=== PATIENT | female | born 1975 | race Caucasian/White ===

== ENCOUNTER → 2019-05-14 14:10 | Outpatient (CLI) | payer BC, SELFPAY ==
[2019-05-14 14:30] LABS: Basophils # 0.1 K/mm3 (0-0.2); Basophils % 0.7 % (0.1-2.0); Eosinophils # 0.1 K/mm3 (0.0-0.4); Eosinophils % 1.4 % (0.1-12.0); Hematocrit 35.8 % (37.0-47.0); Hemoglobin 11.2 g/dL (12.2-16.2); Lymphocytes % 26.3 % (10-50); Mean Corpuscular HGB Conc 31.3 g/dL (31.8-35.4); Mean Corpuscular Hemoglobin 28.4 pg (27.0-31.2); Mean Corpuscular Volume 90.6 fl (81-99); Mean Platelet Volume 8.4 fl (7.4-10.4); Monocytes # 0.5 K/mm3 (0.1-1.0); Neutrophils # 4.8 K/mm3 (1.8-7.8); Neutrophils % 64.7 % (37.0-80.0); Platelet Count 322 K/mm3 (142-424); Red Blood Count 3.95 M/mm3 (4.20-5.40); Red Cell Distribution Width 14.1 % (11.5-17.5); White Blood Count 7.4 K/mm3 (4.8-10.8)
[2019-05-14 15:10] LABS: Alanine Aminotransferase 31 U/L (12-78); Albumin Level 4.2 gm/dL (3.4-5.0); Alkaline Phosphatase 71 U/L (46-116); Anion Gap 14.1 mEq/L (5-15); Aspartate Amino Transferase 28 U/L (15-37); Bilirubin,Total 0.2 mg/dL (0.2-1.0); Blood Urea Nitrogen 14 mg/dL (7-18); Calcium 9.2 mg/dL (8.5-10.1); Carbon Dioxide 24 mmol/L (21.0-32.0); Chloride 102 mmol/L (98-107); Chol/HDL Ratio 2.2 (1-3.5); Cholesterol 178 mg/dL (140-200); Creatinine,Serum 1.01 mg/dL (0.55-1.02); Estimated Glomerular Filt Rate 59 ml/min (>60); GFR (African American) 71 ML/MIN (>60); Globulin 4.2 gm/dl (1.3-3.2); Glucose 80 mg/dL (74-106); HDL Cholesterol 81 mg/dL (29-89); LDL Cholesterol 89 mg/dL (0-130); Potassium 4.1 mmoL/L (3.5-5.1); Sodium 136 mmol/L (136-145); Thyroid Stimulating Hormone 4.99 uIU/ml (0.358-3.740); Total Protein,Serum 8.4 gm/dL (6.4-8.2); Triglycerides 39 mg/dL (30-200); VLDL Cholesterol 8 mg/dL (0-40)
[2019-05-16 07:11] LABS: Hep A Ab, IgM Negative (Negative); Hepatitis B Core Antibody IgM Negative (Negative); Hepatitis B Surface Antigen Negative (Negative)
[2019-05-16 09:16] LABS: HIV Screen 4th Generation wRfx Non Reactive (Non Reactive); Hepatitis C Antibody >11.0 s/co ratio (0.0-0.9)
[2019-05-16 09:17] LABS: Vitamin D 25 Hydroxy 18.2 ng/mL (30.0-100.0)
== END ==
PROVIDERS: Visit Provider Nurse Practitioner Family
DX: F32.9 Major depressive disorder, single episode, unspecified (principal); F41.9 Anxiety disorder, unspecified; I10 Essential (primary) hypertension; F19.11 Other psychoactive substance abuse, in remission; E55.9 Vitamin D deficiency, unspecified; Z79.899 Other long term (current) drug therapy
CPT/HCPCS: 80053; 80061; 80074; 82652; 84436; 84443; 85025; 86703; G0432

== ENCOUNTER → 2019-05-29 13:27 | Outpatient (CLI) | payer BC, SELFPAY | PROVIDERS: Visit Provider Nurse Practitioner Family | DX: Z87.898 Personal history of other specified conditions (principal); R79.9 Abnormal finding of blood chemistry, unspecified | CPT/HCPCS: 87522 ==

== ENCOUNTER → 2019-06-06 07:40 | Outpatient (CLI) | payer BC, SELFPAY ==
--- NOTE | 2019-06-06 07:42 | CA_ITS ---
APPROVED REPORT EXAM: Comprehensive 2D, Doppler, and color-flow Echocardiogram Inpatient Coder: Maih Nielson CRT Ht: 5 ft 7 in Wt: 163lbs BSA: 1.85 BP: 130/72 mmHg Indications: HTN, murmur, former drug use. 2D Dimensions LVOT 2.06 cm (M/F) 1.5-2.5 M-Mode Dimensions RVDd 1.98 cm (0.9-2.6) LVDd 5.71 cm (3.5-5.7) LVDs 3.32 cm (3.5-5.7) IVSd 1.08 cm (0.6-1.1) PWd 0.70 cm (0.6-1.1) EF (Teich) 72.10% FS 41.90% EDV (Teich) 160.70 mL ESV (Teich) 44.80 mL LV Diastology E/A Ratio 0.82 Mitral Valve MV A Velocity 88.00 (40-130 cm/s) Left Ventricle Left atrium is mildly enlarged, left ventricle is normal size, mild concentric left ventricular hypertrophy, visually estimated ejection fraction 55% with no regional wall motion abnormality. Grade 1 diastolic dysfunction seen without tissue Doppler evidence of raise left atrial pressure. Right Ventricle Right atrium and right ventricular normal size and contractility. Aortic Valve Aortic valve is minimally thickened and fibrosed. There is no aortic stenosis aortic insufficiency. Mitral Valve Mitral valve is grossly normal, there is mild mitral regurgitation. Tricuspid Valve Tricuspid valve is grossly normal, there is mild tricuspid regurgitation. Pulmonic Valve Pulmonic valve is poorly visualized. Great Vessels Aortic root is normal size. Pericardium No significant pericardial effusion noted. Conclusion 1. Mildly in the left atrium, normal left ventricular size, mild concentric left ventricular hypertrophy, visually estimated ejection fraction 55% with no regional wall motion abnormality, grade 1 diastolic dysfunction seen without tissue Doppler evidence of raise left atrial pressure. 2. Mild mitral and tricuspid regurgitation. 3. No significant pericardial effusion noted. Electronically signed by : Jose Hinds, 06/06/2019 13:37:13
--- NOTE | 2019-06-06 07:42 | CA_ITS ---
APPROVED REPORT Worship Leader: Erin Mchugh RVT Study Quality: Good Indications: htn Risk Factors Hypertension Renal Artery Doppler Origin (R) 179.9/ cm/sec Proximal (R) 152.6/ cm/sec Mid (R) 103.2/ cm/sec Distal (R) 77.6/ cm/sec Renal Aorta Ratio (R) 1.46 Segmental A. (R) 61.3/21.5 cm/sec RI: 0.64 Segmental A. Sup (R) 61.3/21.5 cm/sec Segmental A. Mid (R) 54.1/21.5 cm/sec Segmental A. Inf (R) 40.9/7.2 cm/sec Origin (L) 126.8/ cm/sec Proximal (L) 97.0/ cm/sec Mid (L) 157.3/ cm/sec Distal (L) 94.6/ cm/sec Renal Aorta Ratio (L) 1.27 Segmental A. (L) 73.3/21.3 cm/sec RI: 0.70 Segmental A. Sup (L) 65.3/34.7 cm/sec Segmental A. Mid (L) 52.0/14.7 cm/sec Segmental A. Inf (L) 73.3/21.3 cm/sec Renal Measurements Kidney Size (R) 9.0x5.3 cm Cortical Thickness (R) 1.6 cm Kidney Size (L) 9.5x6.8 cm Cortical Thickness (L) 1.6 cm Conclusion Study suggests less than 60% stenosis of the right renal artery. Study suggests no evidence of stenosis left renal artery. Cholelithiasis. Electronically signed by : Jose Luis Yo MD 06/06/2019 15:43:26
--- NOTE | 2019-06-06 08:52 | MM_ITS ---
PROCEDURE: MM DIG SCREENING MAMM BI W/CAD CLINICAL INDICATION: screening for breast cancer There is a history of breast cancer patient's paternal aunt diagnosed before menopause. COMPARISON: None, this is baseline screening exam TECHNIQUE: Standard CC and MLO images were obtained. R2 CAD reviewed. FINDINGS: Mild to moderate fibroglandular densities are seen in the upper outer quadrants of both breasts and the findings of bilateral and symmetrical. There is no suspicious lesion and no suspicious microcalcifications. IMPRESSION: Fibrofatty parenchyma with no suspicious lesions seen BI-RAD Category: 1 Negative FOLLOW-UP: 1YR 1 Year Follow-up (A letter has been sent to the patient regarding results of the study.) Dictated by: Dr. Ender Puentes MD 06/10/2019 11:[address] Ender Puentes MD in [place] 06/10/2019 11:14
== END ==
PROVIDERS: PCP Emergency Medicine; Visit Provider Nurse Practitioner Family
DX: Z12.31 Encounter for screening mammogram for malignant neoplasm of breast (principal); R01.1 Cardiac murmur, unspecified; I10 Essential (primary) hypertension; F19.11 Other psychoactive substance abuse, in remission
CPT/HCPCS: 77067; 93306; 93976

== ENCOUNTER → 2019-06-06 09:45 | Outpatient (CLI) | payer BC, SELFPAY ==
[2019-06-12 18:15] LABS: HCV Genotype Charge YES; Hepatitis C Genotype 1a (.)
== END ==
PROVIDERS: Visit Provider Nurse Practitioner Family
DX: R76.8 Other specified abnormal immunological findings in serum (principal)
CPT/HCPCS: 36415; 87522; 87902

== ENCOUNTER → 2019-06-27 09:25 | Outpatient (CLI) | payer BC, SELFPAY ==
--- NOTE | 2019-06-27 09:25 | US_ITS ---
PROCEDURE: US GALLBLADDER CLINICAL INDICATION: gallstones Cholelithiasis COMPARISON: No exams were available for comparison FINDINGS: Pancreas: Unremarkable/Not well seen Liver: Unremarkable. There is appropriate direction of blood flow within a non dilated portal vein. Right kidney: Unremarkable appearing. No hydronephrosis. Gallbladder: Gallbladder is distended at 12 by 5.4 cm. There is a gallstone present. Common bile duct is within normal limits at 4 mm. No gallbladder wall thickening pericholecystic fluid or biliary dilatation. IMPRESSION: Distended gallbladder with cholelithiasis Dictated by: Jose Luis Yo MD 06/27/2019 15:37 Electronically signed by Jose Luis Yo MD in [facility] 06/27/2019 15:37
== END ==
PROVIDERS: PCP Emergency Medicine; Visit Provider Surgery
DX: K82.9 Disease of gallbladder, unspecified (principal)
CPT/HCPCS: 76705

== ENCOUNTER → 2019-06-30 11:31 | Outpatient (CLI) | payer BC, SELFPAY ==
[2019-06-30 12:06] LABS: Basophils % 0.3 % (0.1-2.0); Eosinophils # 0.1 K/mm3 (0.0-0.4); Eosinophils % 1.2 % (0.1-12.0); Hemoglobin 11.1 g/dL (12.2-16.2); Lymphocytes # 1.9 K/mm3 (0.7-4.5); Lymphocytes % 25.3 % (10-50); Mean Corpuscular HGB Conc 30.8 g/dL (31.8-35.4); Mean Corpuscular Hemoglobin 26.6 pg (27.0-31.2); Mean Corpuscular Volume 86.3 fl (81-99); Mean Platelet Volume 8.8 fl (7.4-10.4); Monocytes # 0.7 K/mm3 (0.1-1.0); Monocytes % 9.2 % (1.7-9.3); Neutrophils # 4.8 K/mm3 (1.8-7.8); Neutrophils % 64.1 % (37.0-80.0); Platelet Count 233 K/mm3 (142-424); Red Blood Count 4.17 M/mm3 (4.20-5.40); Red Cell Distribution Width 14.1 % (11.5-17.5); White Blood Count 7.4 K/mm3 (4.8-10.8)
[2019-06-30 12:10] LABS: INR 1.03 (0.9-1.1); Prothrombin Time 10.7 seconds (9.4-11.8)
[2019-06-30 13:12] LABS: Alanine Aminotransferase 46 U/L (12-78); Albumin Level 3.9 gm/dL (3.4-5.0); Albumin/Globulin Ratio 1.1 (1.1-1.8); Alkaline Phosphatase 67 U/L (46-116); Anion Gap 15.6 mEq/L (5-15); Aspartate Amino Transferase 44 U/L (15-37); Bilirubin,Total 0.2 mg/dL (0.2-1.0); Blood Urea Nitrogen 14 mg/dL (7-18); Calcium 8.5 mg/dL (8.5-10.1); Carbon Dioxide 23 mmol/L (21.0-32.0); Chloride 105 mmol/L (98-107); Creatinine,Serum 0.95 mg/dL (0.55-1.02); Estimated Glomerular Filt Rate 63 ml/min (>60); GFR (African American) 77 ML/MIN (>60); Globulin 3.5 gm/dl (1.3-3.2); Glucose 76 mg/dL (74-106); Potassium 4.6 mmoL/L (3.5-5.1); Sodium 139 mmol/L (136-145); Total Protein,Serum 7.4 gm/dL (6.4-8.2)
== END ==
PROVIDERS: Visit Provider Surgery
DX: Z01.818 Encounter for other preprocedural examination (principal); R10.9 Unspecified abdominal pain; K80.10 Calculus of gallbladder with chronic cholecystitis without obstruction
CPT/HCPCS: 36415; 80053; 85025; 85610

== ENCOUNTER → 2021-01-05 10:38 | Outpatient (CLI) | payer BC, SELFPAY ==
--- NOTE | 2021-01-05 10:39 | MM_ITS ---
PROCEDURE: MM DIG SCREENING MAMM BI W/CAD Digital Breast Tomosynthesis Included CLINICAL INDICATION: screening COMPARISON: MG MM DIG SCREENING MAMM BI W/CAD from 06/06/2019 TECHNIQUE: Standard CC and MLO images and 3D Tomosynthesis was obtained. R2 CAD reviewed. FINDINGS: There has been interval weight loss since the last mammogram. Average fibroglandular tissue. No malignant appearing mass or malignant-appearing microcalcification. There is some asymmetry in the retroareolar region on the left on the CC view. This however demonstrates interspersed fat on the tomographic images and is not felt to be significantly changed IMPRESSION: Benign findings. BI-RAD Category: 2 Benign Finding FOLLOW-UP: 1 YR 1 Year Follow-up (A letter has been sent to the patient regarding results of the study.) Dictated by: Jose Luis Yo MD 01/06/2021 09:13 Jose Luis oY MD in [facility] 01/06/2021 09:13
== END ==
PROVIDERS: PCP Emergency Medicine; Visit Provider Emergency Medicine
DX: Z12.31 Encounter for screening mammogram for malignant neoplasm of breast (principal)
CPT/HCPCS: 77063; 77067

== ENCOUNTER → 2021-11-01 15:09 | Outpatient (CLI) | payer BC, SELFPAY ==
--- NOTE | 2021-11-01 15:09 | MR_ITS ---
PROCEDURE INFORMATION: Exam: MR Cervical Spine Without Contrast Exam date and time: 11/01/2021 3:55 PM Age: 46 years old Clinical indication: Neck pain; Additional info: Neck pain. Right sided shulder pain and neck pain x 1 year but gotten worse. No injury / trauma. Headaches TECHNIQUE: Imaging protocol: Multiplanar magnetic resonance images of the cervical spine without contrast. COMPARISON: No relevant prior studies available. FINDINGS: Vertebrae: No acute fracture is identified. There is straightening of the normal cervical lordosis. There is a 7 mm high T2 signal lesion in the T1 vertebral body, likely representing a lipid poor hemangioma. Degenerative bone marrow edema and sclerosis is noted along the C4-C5 endplates. Spinal cord: The cervical cord is of normal signal intensity and size. C2-C3: No significant disc disease. No significant spinal stenosis. C3-C4: There is mild uncinate spurring and facet arthropathy. This is causing mild right foraminal stenosis. There is no spinal canal or left foraminal stenosis. C4-C5: There is disc dehydration, severe disc space narrowing, a broad-based posterior disc osteophyte complex, marked uncinate spurring, and minimal facet arthropathy. This is causing mild spinal canal stenosis and severe bilateral foraminal stenosis. C5-C6: There is a broad-based posterior disc osteophyte complex, moderate uncinate spurring, and mild thickening of the ligamentum flavum. This is causing minimal spinal canal stenosis, moderate left foraminal stenosis, and moderate/severe right foraminal stenosis. C6-C7: There is shallow broad-based posterior disc bulging, mild uncinate spurring, and mild thickening of the ligamentum flavum. This is causing minimal spinal canal stenosis, mild right foraminal stenosis, and minimal left foraminal stenosis. C7-T1: No significant disc disease. No significant spinal stenosis. Soft tissues: The prevertebral soft tissues are within normal limits. Vertebral arteries: Expected flow voids in the vertebral arteries. IMPRESSION: Degenerative changes of the cervical spine as discussed above. Severe bilateral foraminal stenosis is present at C4-C5.
== END ==
PROVIDERS: PCP Emergency Medicine; Visit Provider Emergency Medicine
DX: M54.2 Cervicalgia (principal)
CPT/HCPCS: 72141; 76376

== ENCOUNTER → 2021-11-28 10:56 | Outpatient (POV) | payer BC, SELFPAY ==
[2021-11-28 11:43] VITALS: BP 131/81; PULSE 80; RESP 20; TEMP 36.7; O2SAT 98; BMI 18.3
--- NOTE | 2021-11-28 14:42 | HMH.PMCON ---
Assessment and Plan (1) Degenerative disc disease, cervical Status: Acute Category: Medical Code(s): M50.30 - Other cervical disc degeneration, unspecified cervical region (2) Cervical radiculopathy Status: Acute Category: Medical Code(s): M54.12 - Radiculopathy, cervical region - Assessment and plan all Dx Assessment and Plan for all problems:: Imaging: FINDINGS: Vertebrae: No acute fracture is identified. There is straightening of the normal cervical lordosis. There is a 7 mm high T2 signal lesion in the T1 vertebral body, likely representing a lipid poor hemangioma. Degenerative bone marrow edema and sclerosis is noted along the C4-C5 endplates. Spinal cord: The cervical cord is of normal signal intensity and size. C2-C3: No significant disc disease. No significant spinal stenosis. C3-C4: There is mild uncinate spurring and facet arthropathy. This is causing mild right foraminal stenosis. There is no spinal canal or left foraminal stenosis. C4-C5: There is disc dehydration, severe disc space narrowing, a broad-based posterior disc osteophyte complex, marked uncinate spurring, and minimal facet arthropathy. This is causing mild spinal canal stenosis and severe bilateral foraminal stenosis. C5-C6: There is a broad-based posterior disc osteophyte complex, moderate uncinate spurring, and mild thickening of the ligamentum flavum. This is causing minimal spinal canal stenosis, moderate left foraminal stenosis, and moderate/severe right foraminal stenosis. C6-C7: There is shallow broad-based posterior disc bulging, mild uncinate spurring, and mild thickening of the ligamentum flavum. This is causing minimal spinal canal stenosis, mild right foraminal stenosis, and minimal left foraminal stenosis. C7-T1: No significant disc disease. No significant spinal stenosis. Soft tissues: The prevertebral soft tissues are within normal limits. Vertebral arteries: Expected flow voids in the vertebral arteries. IMPRESSION: Degenerative changes of the cervical spine as discussed above. Severe bilateral foraminal stenosis is present at C4-C5. Plan: Patient presents today as a new patient with worsening neck pain that radiates to the right shoulder. This has been going on for about 6 months now. Denies any history of traumas or falls. Cervical MRI is posted above. We will schedule this patient for a cervical epidural steroid injection at C5-C6. Risk and benefits of this procedure been discussed with the patient. Patient would like to proceed with this procedure. Patient is not on any blood thinners. Patient is currently on Suboxone therapy. According to the patient, she has been cleaned for 8 years now. We will continue to manage this patient with injective therapy if needed. Patient is worried about the lumps and bruising that happens whenever she gets his radiating pain from her neck to her right shoulder. I discussed with her that if the cervical epidural steroid injection does not provide any significant relief, this pain on her neck and right shoulder might be vascular in nature. Neuropathic pain typically do not present with any lumps or bruising. Patient has been instructed to contact the clinic with any concerns before the next appointment. Dr. Chris has reviewed this note and agrees with this plan of care. This note was dictated using voice recognition software and make contain errors or omissions. HPI - Data of Consult Patient: new to practice Consult date: 11/28/21 Requesting Physician: DIEGO Thomas - Consult Narrative Reason for consult: neck pain History of present illness: Ms. Chirinos is a 46 year old female who presents today as a new patient. Patient is referred by Dr. Kat. Thank you for the referral. Patient with a hx of substance abuse and currently on suboxone therapy x3 years presents w
== END ==
PROVIDERS: Visit Provider Student in an Organized Health Care Education/Training Program
DX: M50.10 Cervical disc disorder with radiculopathy, unspecified cervical region (principal); F19.11 Other psychoactive substance abuse, in remission
CPT/HCPCS: 99202; G0463

== ENCOUNTER 2021-12-06 13:38 | Day surgery (SDC) | payer BC, SELFPAY ==
[2021-12-06 13:52] VITALS: BP 111/58; BP 138/99; PULSE 82; RESP 18; RESP 20; TEMP 36.4; O2SAT 93; BMI 17.4
--- NOTE | 2021-12-06 14:00 | HMH.PMPROC ---
- Procedure Date: 12/06/21 Time: 14:01 Anesthesiologist:: Jonathan Cazares CRNA Complications:: None Pre-procedure Diagnosis:: Degenerative disc disease cervical spine multilevels. Cervical radiculopathy symptoms. Post-procedure Diagnosis:: Same Indications for Procedure:: Patient is a pleasant 46-year-old female that comes our injection clinic today for cervical epidural steroid injection. Patient has pathology at most levels in the cervical spine. Bone spur. Degenerative disc. Spinal stenosis. Foraminal stenosis. Patient has not tried cervical epidural steroid injection in the past. She is happy to get it done today to have some relief. Patient continues on Suboxone 8 mg. Patient states she has been clean for 8 years. However, continues on Suboxone. This comes from her PCP. Procedure Details:: Procedure:Cervical epidural steroid injection Informed consent was obtained and the risks and benefits of the procedure were explained to the patient. The patient was taken to the procedure room and noninvasive monitors placed, including noninvasive blood pressure cuff and pulse oximeter. The neck was prepped using Betadine as a cleansing solution. The C6-C7 interspace was palpated. The skin and subcutaneous tissues were anesthetized using lidocaine 1.5% and a 25-gauge needle. After this an 18-gauge Touhy epidural needle was placed into the C6-C7 interspace and advanced using loss of resistance to air until the epidural space was encountered. After confirmation of needle placement in the epidural space, a solution containing lidocaine 1.5%, 4 mL and Depo-Medrol 80 mg was incrementally injected into the cervical epidural space.~ The patient tolerated the procedure well with no complications. The patient was observed in the Pain Clinic and then discharged home neurologically intact. Plan and Disposition:: Patient was discharged without incident.
[2021-12-06 14:10] VITALS: BP 102/67; PULSE 78; RESP 18; O2SAT 96
== END 2021-12-06 14:11 | disposition home or self-care (01) ==
LOC: SC.PAINP 13:39
PROVIDERS: PCP Emergency Medicine; Visit Provider Nurse Anesthetist, Certified Registered
DX: M50.123 Cervical disc disorder at C6-C7 level with radiculopathy (principal); M48.02 Spinal stenosis, cervical region; M46.02 Spinal enthesopathy, cervical region; K21.9 Gastro-esophageal reflux disease without esophagitis; K75.9 Inflammatory liver disease, unspecified; F41.9 Anxiety disorder, unspecified; F32.A Depression, unspecified; Z72.0 Tobacco use
CPT/HCPCS: 62321; 76000; J1040

== ENCOUNTER → 2021-12-22 13:01 | Outpatient (POV) | payer BC, SELFPAY ==
[2021-12-22 14:51] VITALS: BP 125/89; PULSE 76; RESP 17; TEMP 36.7; O2SAT 97; BMI 17.2
--- NOTE | 2021-12-22 21:11 | HMH.PAINSOAP ---
[facility] Pain Management SOAP Note Subjective:: Patient is a pleasant 38-year-old female who presents today for follow-up after a cervical epidural steroid injection on December 06, 2021. Patient is currently being treated for degenerative disc disease of the cervical spine with cervical radiculopathy symptoms. After the injection, patient had significant relief of 70 to 80% that lasted for about 5 days. Patient states that she was able to increase her activities during those 5 days. Before the injection, she was having radicular pains from her neck to her right arm. She states that these reticulating pain got better after the injection. Today, patient states that her pain is almost back to baseline. She has less neck pain but she continues to have pain around her right shoulder. Rates her pain today as 8 out of 10. Review of Systems: General: No recent weight changes, no fever, no sleep disturbances Respiratory: No cough, no shortness of air, no recurring pulmonary infections Cardiovascular/peripheral vascular: No chest pain, no palpitations, no edema, no shortness of breath Gastrointestinal: No new onset incontinence, normal bowel movements reported Genitourinary: No new onset incontinence Musculoskeletal: Neck pain, shoulder pain Psychiatric: [Normal mood/affect] Neurological: [Denies weakness in extremities], [denies balance issues] Objective:: Physical Exam: General: Alert and oriented x3, no acute distress, pleasant and cooperative Lungs: Respirations even and unlabored, symmetrical chest expansion Eyes: PERRL Musculoskeletal: Flexion and extension of cervical [spine] somewhat guarded secondary to pain, [antalgic gait noted]; cervical paraspinous and upper trapezius are tender to palpation Neurological: Speech clear, no gross sensory deficit Assessment:: Degenerative disc disease of the cervical spine with cervical radiculopathy symptoms, myofascial pain Plan:: Patient is TTP around the cervical and baudilio upper trap. She did have good relief after the DOT. We will schedule this patient for a TPI at Cervical Paraspinous and Baudilio Upper Trap. Patient has been instructed to contact the clinic with any concerns before the next appointment. Dr. Chris has reviewed this note and agrees with this plan of care. This note was dictated using voice recognition software and make contain errors or omissions. [facility] History Medical History: Reports:: Anxiety, Depression, Gastroesophageal Reflux Disease(GERD), Hepatitis Denies:: Cancer, Diabetes Mellitus Type 1, Diabetes Mellitus Type 2, Internal Pacemaker, MRSA, Seizures *Have you ever received a pneumonia vaccine?: No *Have you received a flu vaccine this season?: Yes Other Medical History: Reports: Arthritis, Other. Denies: Blood Transfusion Reaction Laterality Cases: Right: Arthroscopy Knee Other Surgeries: Yes: Cholecystectomy, (x2), Tubal Ligation, Other. No: Pacemaker Amputation: No Fractures: Yes (left ankle) - *Social History Smoking Status: Current every day smoker Tobacco Type: cigarettes # Packs/Day (cigarettes): 1 Alcohol Intake: never Substance Use Type: former substance user, crack/cocaine, heroin *Occupational Status:: other Housing: house Household Members: significant other *Travel in the last 8 weeks: None - Psychiatric History Pschychiatric History:: Reports:: Anxiety, Depression Family Hx:: Cancer, Diabetes, Hyperlipidemia, Hypertension, Alcoholism
== END ==
PROVIDERS: Visit Provider Student in an Organized Health Care Education/Training Program
DX: M50.10 Cervical disc disorder with radiculopathy, unspecified cervical region (principal); M79.18 Myalgia, other site
CPT/HCPCS: 99212; G0463

== ENCOUNTER 2022-01-13 08:09 | Day surgery (SDC) | payer BC, SELFPAY ==
[2022-01-13 08:24] VITALS: BP 116/73; PULSE 77; RESP 18; TEMP 36.3; O2SAT 97; BMI 18.0
[2022-01-13 08:37] VITALS: BP 139/82; PULSE 77; RESP 20
--- NOTE | 2022-01-13 08:43 | HMH.PMPROC ---
- Procedure Date: 01/13/22 Time: 08:43 Anesthesiologist:: Jonathan Cazares CRNA Complications:: None Pre-procedure Diagnosis:: MYoFascial pain bilateral trapezius muscle Post-procedure Diagnosis:: M Indications for Procedure:: Patient is a very pleasant 38-year-old female that comes our clinic today for bilateral trapezius trigger point injections. Patient has had pain up in the trapezius area for several months now she rates the pain 9/10. We will inject bilateral trapezius muscles today. Procedure Details:: Details of the procedure were explained to the patient. The patient was taken to the procedure room placed in the sitting position. The area over the bilateral trapezius muscle was cleaned using chlorhexidine as a cleansing solution. Markers were placed over 3 different positions on the right trapezius muscle. Medial to lateral. These were identified from the patient as the spots that are really painful. I used a 1-1/2 inch 25-gauge needle and at each marker placed 3 cc of 0.25% Marcaine +1% lidocaine and 40 mg solution. We repeated the same procedure on the left trapezius muscle. Patient tolerated procedure without difficulty. There are no complications. Plan and Disposition:: Patient will return to see us in clinic for follow-up visit.
[2022-01-13 08:51] VITALS: BP 118/72; PULSE 75; RESP 20; O2SAT 97
== END 2022-01-13 08:52 | disposition home or self-care (01) ==
LOC: SC.PAINP 08:09
PROVIDERS: PCP Emergency Medicine; Visit Provider Nurse Anesthetist, Certified Registered
DX: M79.18 Myalgia, other site (principal); M19.90 Unspecified osteoarthritis, unspecified site; Z72.0 Tobacco use
CPT/HCPCS: 20552; 77002; J1040

== ENCOUNTER → 2022-02-20 13:01 | Outpatient (POV) | payer BC, SELFPAY ==
[2022-02-20 13:20] VITALS: BP 125/80; PULSE 72; RESP 20; TEMP 36.7; O2SAT 97; BMI 17.2
--- NOTE | 2022-02-20 14:30 | A.OFFVIS_ITS ---
[facility] Pain Management SOAP Note Subjective:: Patient is a 46-year-old female who presents today for follow-up. We are currently treating the patient for degenerative disc disease of cervical spine with cervical radiculopathy symptoms, myofascial pain of bilateral trapezius muscles. Patient previously had trigger point injections at her bilateral trapezius on 01/13/2022. Patient states this has provided significant relief of her pain symptoms. She states she got about 90 to 100% relief and has lasted up until about 2 weeks ago. Patient has been able to increase her activities and ADLs since this injection. Today she rates her pain a 7 out of 10 and states the pain is in her right neck, bilateral shoulders and extends to her right arm. Patient denies any new trauma or injury to the site. She denies any change to the location or type of pain she experiences. She is interested in repeating her injection. Patient is currently managed with gabapentin 600 mg 3 times a day by Dr. Kat. Patient denies any side effects from this medication. She states this medication is adequately managing her pain. She is also on Suboxone therapy by Marisela Stein. Her Jas is [phone]. It has been reviewed and appropriate. Review of Systems: General: No recent weight changes, no fever, no sleep disturbances Respiratory: No cough, no shortness of air, no recurring pulmonary infections Cardiovascular/peripheral vascular: No chest pain, no palpitations, no edema, no shortness of breath Gastrointestinal: No new onset incontinence, normal bowel movements reported Genitourinary: No new onset incontinence Musculoskeletal: Neck pain, bilateral shoulder pain, right arm pain Psychiatric: [Normal mood/affect] Neurological: [Denies weakness in extremities], [denies balance issues] Objective:: Physical Exam: General: Alert and oriented x3, no acute distress, pleasant and cooperative Lungs: Respirations even and unlabored, symmetrical chest expansion Eyes: PERRL Musculoskeletal: Flexion and extension of cervical [spine] somewhat guarded secondary to pain, [antalgic gait noted] extreme point tenderness along bilateral trapezius muscles Neurological: Speech clear, no gross sensory deficit Assessment:: Degenerative disc disease of cervical spine with cervical radiculopathy symptoms, myofascial pain Plan:: Patient is having worsening neck and bilateral shoulder pain, primarily right- sided radiating into her right arm. Patient had extreme point tenderness along bilateral shoulder muscles during today's exam. I have discussed with the patient regarding trigger point injections at the sites. Risk and benefits were discussed with the patient. She would like to proceed forward with these injections. We will schedule her for TPI of her bilateral trapezius muscles at today's visit. Patient has been instructed to contact the clinic with any concerns before the next appointment. Dr. Chris has reviewed this note and agrees with this plan of care. This note was dictated using voice recognition software and make contain errors or omissions. PFSH PFSH Social History Smoking Status: Current every day smoker tobacco type: cigarettes packs per day: 1 alcohol intake: never substance use type: former substance user, crack/cocaine and heroin current occupational status: other household members: significant other housing: house 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
== END ==
PROVIDERS: PCP Emergency Medicine; Visit Provider Nurse Practitioner Family
DX: M50.30 Other cervical disc degeneration, unspecified cervical region (principal); M79.10 Myalgia, unspecified site
CPT/HCPCS: 99212; G0463

== ENCOUNTER 2022-03-14 10:22 | Day surgery (SDC) | payer BC, SELFPAY ==
[2022-03-14 10:35] VITALS: BP 132/93; PULSE 76; RESP 18; TEMP 36.3; O2SAT 95; BMI 16.7
[2022-03-14 11:15] VITALS: BP 155/95; PULSE 74; RESP 18; O2SAT 97
--- NOTE | 2022-03-14 11:58 | P.PCN_ITS ---
Procedure Date: 03/14/22 Time: 11:58 Anesthesiologist:: Jonathan Cazares CRNA Complications:: None Pre-procedure Diagnosis:: Myofascial pain bilateral trapezius muscles Post-procedure Diagnosis:: Same Indications for Procedure:: This patient is a pleasant 46-year-old female that comes our clinic for repeat bilateral trapezius trigger point injections. She has had these with significant improvement terms of her cervical neck pain as well as bilateral shoulder pain. Procedure Details:: Details of the procedure were explained to the patient. The patient taken to the procedure room and placed in the sitting position. The area of the bila teral trapezius muscles was cleansed using chlorhexidine as a cleansing solution. Using a 25-gauge needle and a solution containing 0.25% Marcaine, 1% lidocaine and 40 mg of Depo-Medrol. 2 separate areas of the right trapezius muscle was accessed and 3 cc injected at each area. The same was done of the left trapezius muscle. Patient tolerated procedure without difficulty. There were no complications Plan and Disposition:: Patient was discharged without incident.
== END 2022-03-14 11:15 | disposition home or self-care (01) ==
LOC: SC.PAINP 10:23
PROVIDERS: PCP Emergency Medicine; Visit Provider Nurse Anesthetist, Certified Registered
DX: M79.12 Myalgia of auxiliary muscles, head and neck (principal)
CPT/HCPCS: 20552; J1040

== ENCOUNTER → 2022-05-24 10:55 | Outpatient (POV) | payer BC, SELFPAY ==
--- NOTE | 2022-05-24 11:17 | EXP.PAIN.SOA ---
[facility] Pain Management SOAP Note Subjective:: Patient is a pleasant 47-year-old female who presents today for follow-up of trigger point injections at bilateral trapezius muscles on 03/14/2022. We are currently treating the patient for degenerative disc disease of cervical spine with cervical radiculopathy symptoms, myofascial pain of bilateral trapezius muscles. Today the patient states that she had 0 relief following these injections. She rates her pain a 7 out of 10. She denies any new trauma or injury. Patient denies any change in location or type of pain she experiences. Patient states the pain is all in her upper back/neck and radiates into her bilateral upper extremities with numbness and tingling. Patient describes this as a achy, throbbing sensation that is worse with increased activities. Patient states that she has trouble performing activities of daily living due to the pain she experiences. Patient states she has had injections in the past that provided significant improvement of approximately 90 to 100% relief lasting up upwards of 2 weeks. Patient has tried [id number] Tylenol and ibuprofen and topical creams with minimal improvement. Patient has also tried heat and ice. Patient is currently prescribed gabapentin 800 mg 3 times a day by Dr. Kat's office. Patient denies any side effects from this medication. She states this medication does help with her pain symptoms. Her Jas is [id number]. It has been reviewed and appropriate. Review of Systems: General: No recent weight changes, no fever, no sleep disturbances Respiratory: No cough, no shortness of air, no recurring pulmonary infections Cardiovascular/peripheral vascular: No chest pain, no palpitations, no edema, no shortness of breath Gastrointestinal: No new onset incontinence, normal bowel movements reported Genitourinary: No new onset incontinence Musculoskeletal: Neck pain, arm numbness tingling Psychiatric: [Normal mood/affect] Neurological: [Denies weakness in extremities], [denies balance issues] Objective:: Physical Exam: General: Alert and oriented x3, no acute distress, pleasant and cooperative Lungs: Respirations even and unlabored, symmetrical chest expansion Eyes: PERRL Musculoskeletal: Flexion and extension of cervical [spine] somewhat guarded secondary to pain, [antalgic gait noted] Neurological: Speech clear, no gross sensory deficit Assessment:: Degenerative disc disease of cervical spine with cervical radiculopathy symptoms, myofascial pain of bilateral trapezius muscles Plan:: Patient is experiencing significant pain in her upper back/neck with radiating symptoms into her upper extremities. Patient did have limited range of motion of her cervical spine during today's visit. Patient has tried and failed conservative therapy such as oral medication, topicals, heat and ice, at home exercising and stretching for longer than 6 weeks. I have discussed with the patient that she may benefit from a cervical epidural. Risk and benefits were discussed with the patient. She would like to proceed forward with this plan of care. She is not on any blood thinners. I will also order the patient a compounding cream at today's visit. We will schedule the patient for a cervical epidural steroid injection at C6-C7. Patient has been instructed to contact the clinic with any concerns before the next appointment. Dr. Chris has reviewed this note and agrees with this plan of care. This note was dictated using voice recognition software and make contain errors or omissions. [facility] Medical History No significant past medical history Surgical History H/O arthroscopy of right knee History of History of tubal ligation Hx laparoscopic cholecystectomy Family History Other Family history of COPD (chronic obst
[2022-05-24 11:19] VITALS: BP 105/67; PULSE 70; RESP 18; O2SAT 97; BMI 19.3
== END ==
PROVIDERS: PCP Emergency Medicine; Visit Provider Nurse Practitioner Family
DX: M50.123 Cervical disc disorder at C6-C7 level with radiculopathy (principal); M79.18 Myalgia, other site; Z72.0 Tobacco use; Z79.899 Other long term (current) drug therapy
CPT/HCPCS: 99212; G0463

== ENCOUNTER 2022-05-30 11:00 | Day surgery (SDC) | payer BC, SELFPAY ==
[2022-05-30 11:15] VITALS: BP 130/81; PULSE 87; RESP 18; TEMP 36.7; O2SAT 97; BMI 19.3
[2022-05-30 11:24] VITALS: BP 135/75; PULSE 86; RESP 18; O2SAT 97
--- NOTE | 2022-05-30 11:32 | P.PCN_ITS ---
Procedure Date: 05/30/22 Time: 11:30 Anesthesiologist:: Jonathan Cazares CRNA Complications:: None Pre-procedure Diagnosis:: Degenerative disc disease cervical spine. Cervical radiculopathy Post-procedure Diagnosis:: Same. Indications for Procedure:: Patient is a very pleasant 47-year-old female comes our clinic today for cervical epidural steroid injection. She has had this in the past with significant improvement. She complains of cervical neck pain as well as bilateral arm radicular symptoms at times. She rates her pain 7/10. Procedure Details:: Procedure:Cervical epidural steroid injection Informed consent was obtained and the risks and benefits of the procedure were explained to the patient. The patient was taken to the procedure room and noninvasive monitors placed, including noninvasive blood pressure cuff and pulse oximeter. The neck was prepped using Chloraprep as a cleansing solution. The C6- C7 interspace was viewed using fluroscopy. The skin and subcutaneous tissues were anesthetized using lidocaine 1.5% and a 25-gauge needle. After this an 18- gauge Touhy epidural needle was placed into the C6-C7 interspace under fluroscopy guidance and advanced using loss of resistance to air until the epidural space was encountered. After confirmation of needle placement in the epidural space using contrast dye, a solution containing normal saline, 2 mL and Depo-Medrol 80 mg was incrementally injected into the cervical epidural space.~ The patient tolerated the procedure well with no complications. The patient was observed in the Pain Clinic and then discharged home neurologically intact. Plan and Disposition:: Patient was discharged without incident.
[2022-05-30 11:35] VITALS: BP 152/93; PULSE 88; RESP 18; O2SAT 97
== END 2022-05-30 11:35 | disposition home or self-care (01) ==
PROVIDERS: PCP Emergency Medicine; Visit Provider Nurse Anesthetist, Certified Registered
DX: M50.123 Cervical disc disorder at C6-C7 level with radiculopathy (principal)
CPT/HCPCS: 62321; J1030

== ENCOUNTER → 2022-06-28 11:33 | Outpatient (POV) | payer BC, SELFPAY ==
[2022-06-28 11:55] VITALS: BP 141/99; PULSE 94; RESP 18; O2SAT 96; BMI 19.3
--- NOTE | 2022-06-28 12:11 | EXP.PAIN.SOA ---
[facility] Pain Management SOAP Note Subjective:: Patient is a pleasant 47-year-old female who presents today for follow-up of cervical epidural steroid injection at C6-C7 on 05/30/2022. We are currently treating the patient for degenerative disc disease of cervical spine with cervical radiculopathy symptoms, myofascial pain of bilateral trapezius muscles. Today the patient states that she did not have significant relief following this injection as well as it did cause significant worsening symptoms in her left arm. Patient rates her pain a 7 out of 10 and denies any new trauma or injury. Patient denies any change location or type of pain she experiences. Patient has had multiple injections in the past including trigger point injections with some improvement. Patient does state her pain is a constant aching, throbbing sensation with numbness and tingling in her upper extremities that is worse with increased activity. Patient has significant trouble performing activities of daily living such as cooking and cleaning due to her pain. Patient has tried [id number] Tylenol and ibuprofen with minimal improvement as well as topical creams. Patient is currently managed with gabapentin 3 times a day 800 mg. Patient denies any side effects from this medication. She states this medication does help her neuropathy symptoms. Patient is also prescribed compounding cream however she states she has not noticed significant improvement. Patient is on Suboxone therapy. Patient has tried heat and ice with no additional improvement along with physical therapy and at home exercising and stretching. Her Jas is [id number]. Its been reviewed and appropriate. Review of Systems: General: No recent weight changes, no fever, no sleep disturbances Respiratory: No cough, no shortness of air, no recurring pulmonary infections Cardiovascular/peripheral vascular: No chest pain, no palpitations, no edema, no shortness of breath Gastrointestinal: No new onset incontinence, normal bowel movements reported Genitourinary: No new onset incontinence Musculoskeletal: Neck/upper back pain Psychiatric: [Normal mood/affect] Neurological: [Denies weakness in extremities], [denies balance issues] Objective:: Physical Exam: General: Alert and oriented x3, no acute distress, pleasant and cooperative Lungs: Respirations even and unlabored, symmetrical chest expansion Eyes: PERRL Musculoskeletal: Flexion and extension of cervical [spine] somewhat guarded secondary to pain, [antalgic gait noted] Neurological: Speech clear, no gross sensory deficit Assessment:: Degenerative disc disease of cervical spine with cervical radiculopathy symptoms, myofascial pain of bilateral trapezius muscles Plan:: Patient continues to experience significant pain in her neck and upper back with radiating symptoms into bilateral upper extremities. Patient did have limited range of motion of her cervical spine during today's visit. Patient has tried and failed conservative therapy such as oral medications, injective therapy, topicals, heat and ice, physical therapy, at home stretching and exercise for longer than 6 weeks. I have discussed with the patient that she may benefit from a spinal cord stimulator trial. Risk and benefits were discussed with the patient as well as educational handouts given during today's visit. Patient would like to proceed forward with this plan of care. We will order the patient a psychiatric evaluation with the plan to proceed forward with a spinal cord stimulator trial if she is deemed an appropriate candidate. Patient has been instructed to contact the clinic with any concerns before the next appointment. Dr. Chris has reviewed this note and agrees with this plan of care. This note was dictated using voice recognition software and make contain errors or omissions. [facility] Disclaimer: The information contained in this section may have been updated after the patient was seen, as this inform
== END ==
PROVIDERS: PCP Emergency Medicine; Visit Provider Nurse Practitioner Family
DX: M50.123 Cervical disc disorder at C6-C7 level with radiculopathy (principal); M79.18 Myalgia, other site
CPT/HCPCS: 99212; G0463

== ENCOUNTER → 2022-11-01 15:32 | Outpatient (CLI) | payer BC, SELFPAY ==
[2022-11-01 16:46] LABS: Basophils % 0.5 % (0.1-2.0); Eosinophils # 0.2 K/mm3 (0.0-0.4); Eosinophils % 3.2 % (0.1-12.0); Hematocrit 41.2 % (37.0-47.0); Hemoglobin 13.1 g/dL (12.2-16.2); Lymphocytes # 1.4 K/mm3 (0.7-4.5); Lymphocytes % 23.1 % (10-50); Mean Corpuscular HGB Conc 31.8 g/dL (31.8-35.4); Mean Corpuscular Hemoglobin 27.7 pg (27.0-31.2); Mean Corpuscular Volume 87.1 fl (81-99); Mean Platelet Volume 7.9 fl (7.4-10.4); Monocytes # 0.5 K/mm3 (0.1-1.0); Monocytes % 8.2 % (1.7-9.3); Neutrophils % 65.1 % (37.0-80.0); Platelet Count 265 K/mm3 (142-424); Red Blood Count 4.73 M/mm3 (4.20-5.40); Red Cell Distribution Width 14.3 % (11.5-17.5); White Blood Count 6.2 K/mm3 (4.8-10.8)
[2022-11-01 17:12] LABS: Chloride 97 mmol/L (98-107)
[2022-11-01 17:13] LABS: Potassium 4.5 mmoL/L (3.5-5.1); Sodium 137 mmol/L (136-145)
[2022-11-01 17:16] LABS: Anion Gap 16.5 mEq/L (5-15); Blood Urea Nitrogen 13 mg/dl (7-17); Calcium 8.6 mg/dl (8.4-10.2); Carbon Dioxide 28 mmol/L (22.0-30.0); Estimated Glomerular Filt Rate 53 ml/min (>60); GFR (African American) 64 ML/MIN (>60); Glucose 89 mg/dl (74-100)
== END ==
PROVIDERS: PCP Emergency Medicine; Visit Provider Anesthesiology
DX: Z01.812 Encounter for preprocedural laboratory examination (principal); M51.36 Other intervertebral disc degeneration, lumbar region
CPT/HCPCS: 36415; 80048; 85025

== ENCOUNTER 2022-12-15 10:08 | Day surgery (SDC) | payer BC, SELFPAY ==
--- NOTE | 2022-12-15 10:47 | SUR.PREOP ---
Patient states she is unable to wait until her procedure time. She states that she is hungry, tired and wanted to be the first case when rescheduled. Mariposa Jones notified.
== END 2022-12-15 10:47 ==
LOC: OR 10:10
PROVIDERS: PCP Emergency Medicine; Visit Provider Anesthesiology
PROC: (CPT 62350; principal; 2022-12-15 11:30)
DX: Z53.21 Procedure and treatment not carried out due to patient leaving prior to being seen by health care provider (principal); M50.10 Cervical disc disorder with radiculopathy, unspecified cervical region
CPT/HCPCS: 62350

== ENCOUNTER → 2023-02-08 14:03 | Outpatient (POV) | payer BC, SELFPAY ==
--- NOTE | 2023-02-08 15:37 | EXP.PAIN.SOA ---
[facility] Pain Management SOAP Note Subjective:: Patient is a pleasant 47-year-old female who presents today for follow-up. We are currently treating the patient for degenerative disc disease of cervical spine with cervical radiculopathy symptoms, myofascial pain. Today she rates her pain an 8 out of 10. Patient denies any new trauma or injury or any change location or type of pain she experiences. She does state that she is having more neck pain with tenderness into her right shoulder. Patient has previously had trigger point injections that did provide significant improvement. She is interested in repeating this. Patient has also been scheduled for a spinal cord stimulator trial however she had to reschedule on 3 different occasions. Patient states she is very sorry for being unable to come to these appointments however she had her mother her dog and her significant other at all within a short period of time at the time of these procedures that they were scheduled. She would like to reschedule this and promises that she will be present for it. Patient is currently managed with gabapentin 800 mg 3 times a day from an outside provider. Patient is also on Suboxone therapy. Her Jas is [id number]. Its been reviewed and appropriate. Review of Systems: General: No recent weight changes, no fever, no sleep disturbances Respiratory: No cough, no shortness of air, no recurring pulmonary infections Cardiovascular/peripheral vascular: No chest pain, no palpitations, no edema, no shortness of breath Gastrointestinal: No new onset incontinence, normal bowel movements reported Genitourinary: No new onset incontinence Musculoskeletal: Neck pain, right shoulder pain Psychiatric: [Normal mood/affect] Neurological: [Denies weakness in extremities], [denies balance issues] Objective:: Physical Exam: General: Alert and oriented x3, no acute distress, pleasant and cooperative Lungs: Respirations even and unlabored, symmetrical chest expansion Eyes: PERRL Musculoskeletal: Flexion and extension of cervical [spine] somewhat guarded secondary to pain, [antalgic gait noted] point tenderness along right cervical paraspinous and right trapezius muscles Neurological: Speech clear, no gross sensory deficit Assessment:: Degenerative disc disease of cervical spine with cervical radiculopathy symptoms, myofascial pain Plan:: Patient continues to experience significant pain in her neck with radiating symptoms to her right shoulder. Patient did have point tenderness along her cervical paraspinous muscles at the right side into her right trapezius muscles. I have discussed with the patient that she may benefit from trigger point injections at this location. Risk and benefits were explained to the patient and she would like to proceed forward with this plan of care. I have discussed with the patient that I will talk with Dr. Chris regarding rescheduling her spinal cord stimulator trial however I cannot make any guarantees. Patient will be contacted if we are able to proceed forward with this option. Patient will be scheduled for trigger point injections of her right cervical paraspinous and right trapezius muscles. Patient has been instructed to contact the clinic with any concerns before the next appointment. Dr. Chris has reviewed this note and agrees with this plan of care. This note was dictated using voice recognition software and make contain errors or omissions. [facility] Disclaimer: The information contained in this section may have been updated after the patient was seen, as this information can be updated by other users. Medical History Depression GERD (gastroesophageal reflux disease) No significant past medical history Surgical History H/O arthroscopy of right knee History of History of tubal ligation Hx laparoscopic
[2023-02-08 15:43] VITALS: BP 118/60; PULSE 74; RESP 20; O2SAT 95; BMI 21.1
== END ==
PROVIDERS: PCP Emergency Medicine; Visit Provider Nurse Practitioner Family
DX: M50.10 Cervical disc disorder with radiculopathy, unspecified cervical region (principal); M79.10 Myalgia, unspecified site
CPT/HCPCS: 99212; G0463

== ENCOUNTER 2023-02-20 09:41 | Day surgery (SDC) | payer BC, SELFPAY ==
[2023-02-20 09:52] VITALS: BP 143/97; PULSE 84; RESP 18; TEMP 36.6; O2SAT 97; BMI 21.1
[2023-02-20 10:02] VITALS: BP 135/85; PULSE 84; RESP 18; O2SAT 97
--- NOTE | 2023-02-20 10:13 | EXP.PAIN.PRO ---
Procedure Date: 02/20/23 Time: 09:50 Anesthesiologist:: Jonathan Cazares CRNA Complications:: None Pre-procedure Diagnosis:: Myofascial pain right cervical paraspinous muscle as well as right trapezius muscle. Post-procedure Diagnosis:: Same. Indications for Procedure:: Patient is a very pleasant 47-year-old female that comes our clinic today for right distal cervical paraspinous muscle injection as well as right trapezius muscle trigger point injection. She complains of pain in this area that is constant, dull, sharp, stabbing at times. She has responded well to previous trigger point injections of the same area. She rates her pain 9/10. Procedure Details:: Details of the procedure explained to the patient. The patient taken the procedure room placed in the sitting position. The area over the posterior cervical spine as well as right trapezius muscle was cleaned using chlorhexidine as a cleansing solution. Using a 25-gauge inch and half needle 1 spot on the right distal cervical paraspinous muscle was injected after negative aspiration with 2 cc of a solution containing 0.25% Marcaine +1% lidocaine and 20 mg of Depo-Medrol. 3 separate areas of the right trapezius muscle was injected in a similar fashion using the same solution. Patient tolerated procedure without difficulty. There are no complications Plan and Disposition:: Patient was discharged without incident.
== END 2023-02-20 10:02 | disposition home or self-care (01) ==
PROVIDERS: PCP Emergency Medicine; Visit Provider Nurse Anesthetist, Certified Registered
DX: M79.18 Myalgia, other site (principal)
CPT/HCPCS: 20552; J1040

== ENCOUNTER → 2023-03-14 09:16 | Outpatient (POV) | payer BC, SELFPAY ==
--- NOTE | 2023-03-14 09:27 | EXP.PAIN.SOA ---
[facility] Pain Management SOAP Note Subjective:: Patient is a pleasant 47-year-old female who presents today for follow-up of trigger point injections of her right cervical paraspinous and right trapezius muscles on 02/20/2023. We are currently treating the patient for degenerative disc disease of cervical spine with cervical radiculopathy symptoms, myofascial pain. Today she does state that she had 80% improvement following these injections and that they did not last almost 2 weeks. Today she states that she is going back towards her baseline however it is not as intense as it had been prior. Patient does state while the injections were really working that she was able to increase her activity with decreased pain symptoms. Today she feels like her arm is starting to bother her more again and has limited range of motion. She is interested in repeating this injection. Patient is currently managed with gabapentin 800 mg 3 times a day from an outside provider along with Suboxone therapy. We do prescribe her compounded cream. Patient was scheduled for a spinal cord stimulator trial and unfortunately due to family circumstances had to cancel on 3 different visits. Patient had previously stated that she still wanted to do this and that unfortunately circumstances were out of her control due to deaths in her family. Her Jas is [id number]. Its been reviewed and appropriate. Review of Systems: General: No recent weight changes, no fever, no sleep disturbances Respiratory: No cough, no shortness of air, no recurring pulmonary infections Cardiovascular/peripheral vascular: No chest pain, no palpitations, no edema, no shortness of breath Gastrointestinal: No new onset incontinence, normal bowel movements reported Genitourinary: No new onset incontinence Musculoskeletal: Right-sided neck pain, right shoulder pain Psychiatric: [Normal mood/affect] Neurological: [Denies weakness in extremities], [denies balance issues] Objective:: Physical Exam: General: Alert and oriented x3, no acute distress, pleasant and cooperative Lungs: Respirations even and unlabored, symmetrical chest expansion Eyes: PERRL Musculoskeletal: Flexion and extension of cervical [spine] somewhat guarded secondary to pain, [antalgic gait noted] point tenderness along right cervical paraspinous muscles and right trapezius muscles Neurological: Speech clear, no gross sensory deficit Assessment:: Degenerative disc disease of cervical spine with cervical radiculopathy symptoms, myofascial pain Plan:: Patient did have significant improvement following her trigger point injections however she is going back towards her baseline at today's visit. Patient did have limited range of motion of her cervical spine along with point tenderness of her right cervical paraspinous and right trapezius muscles. I have discussed with the patient that she may benefit from repeat trigger point injections. Risk and benefits were discussed with the patient and she would like to proceed forward with this plan of care. I will follow-up with the patient at the next visit whether she would like to reschedule for the spinal cord stimulator trial. Patient will be scheduled for trigger point injections of her right cervical paraspinous and right trapezius muscles. Patient has been instructed to contact the clinic with any concerns before the next appointment. Dr. Chris has reviewed this note and agrees with this plan of care. This note was dictated using voice recognition software and make contain errors or omissions. [facility] Disclaimer: The information contained in this section may have been updated after the patient was seen, as this information can be updated by other users. Medical History Depression GERD (gastroesophageal reflux disease) No significant past medical history Surgical History H/O arthroscop
[2023-03-14 09:33] VITALS: BP 151/61; PULSE 52; RESP 18; O2SAT 98; BMI 21.1
== END ==
PROVIDERS: PCP Emergency Medicine; Visit Provider Nurse Practitioner Family
DX: M50.10 Cervical disc disorder with radiculopathy, unspecified cervical region (principal); M79.18 Myalgia, other site
CPT/HCPCS: 99212; G0463

== ENCOUNTER 2023-03-27 08:43 | Day surgery (SDC) | payer BC, SELFPAY ==
[2023-03-27 09:29] VITALS: BP 124/99; PULSE 85; RESP 18; TEMP 36.3; O2SAT 96; BMI 21.1
[2023-03-27 10:06] VITALS: BP 144/93; PULSE 75; RESP 18; O2SAT 97
[2023-03-27 10:07] VITALS: BP 144/93; PULSE 75; RESP 18; O2SAT 97
[2023-03-27 10:10] VITALS: BP 149/95; PULSE 79; RESP 18; O2SAT 96
--- NOTE | 2023-03-27 10:36 | EXP.PAIN.PRO ---
Procedure Date: 03/27/23 Time: 10:05 Anesthesiologist:: Jonathan Cazares CRNA Complications:: None Pre-procedure Diagnosis:: Myofascial pain right cervical paraspinous muscle. Right trapezius muscle Post-procedure Diagnosis:: Same. Indications for Procedure:: Patient is a pleasant 47-year-old female who has responded significantly to trigger point injections of the cervical paraspinous muscle as well as trapezius muscles in the past. Today she complains of posterior cervical neck pain mostly on the right. Also right trapezius pain. She rates her pain 7/10 Procedure Details:: Details of the procedure explained to the patient. The patient taken to procedure room placed in the sitting position. The area over the posterior cervical spine as well as right trapezius muscle was cleaned using chlorhexidine as a cleansing solution. Using a solution containing 0.25% Marcaine +1% lidocaine and 40 mg of Depo-Medrol 3 cc was injected after negative aspiration into the right posterior cervical paraspinous muscle. 3 separate injections were placed with 3 cc of the same solution into the right trapezius muscle. Patient tolerated procedure without difficulty. There are no complications. Plan and Disposition:: Patient was discharged out incident.
== END 2023-03-27 10:10 | disposition home or self-care (01) ==
PROVIDERS: PCP Emergency Medicine; Visit Provider Nurse Anesthetist, Certified Registered
DX: M79.18 Myalgia, other site (principal)
CPT/HCPCS: 20552; J1040

== ENCOUNTER → 2023-04-20 12:30 | Outpatient (POV) | payer BC, SELFPAY ==
[2023-04-20 13:06] VITALS: BP 112/88; PULSE 97; RESP 18; O2SAT 97; BMI 21.1
--- NOTE | 2023-04-20 14:07 | A.OFFVIS_ITS ---
[facility] Pain Management SOAP Note Subjective:: This patient is a very pleasant 48-year-old female comes our clinic today for follow-up visit after receiving cervical trigger point injections paraspinous muscle as well as right trapezius muscle. Patient had 50 to 70% improvement terms of her overall posterior cervical neck pain as well as right shoulder pain. Patient describes her cervical neck pain as constant, dull, aching. Patient also reports bilateral arm radicular symptoms to the hand. Patient has 5/5 strength in both arms. Patient reports having difficulty at times holding small items in her hand due to loss of feeling. Her cervical MRI shows multilevel degenerative disc with disc bulge C4-5, C5-6 and to some degree C6-7. Patient has had 1 consultation with neurosurgery group. She was sent for physical therapy. She reports this intensified her symptoms. We will send her back to to [facility] for repeat consultation. Patient rates her pain 8/10. She continues on Suboxone, Wellbutrin, Prozac from her PCP. Objective:: Patient is awake alert [place] x3. In no acute distress. Flexion-extension lumbar spine somewhat guarded secondary to pain. Deep tendon reflexes upper lower extremities normal. There is no gross sensory deficit. Gait is normal. Assessment:: Degenerative disc cervical spine multilevels. Cervical radiculopathy. Multilevel cervical disc bulge. Plan:: We will call and reschedule consultation with [facility] for this patient. She will follow-up with us after receiving consultation. I encouraged the patient to go to x-ray at [facility] for CD of her cervical MRI. [facility] Disclaimer: The information contained in this section may have been updated after the patient was seen, as this information can be updated by other users. Medical History Depression GERD (gastroesophageal reflux disease) No significant past medical history Surgical History H/O arthroscopy of right knee History of History of tubal ligation Hx laparoscopic cholecystectomy Family History Other Family history of COPD (chronic obstructive pulmonary disease) Family history of cancer Family history of diabetes mellitus type II Social History Smoking Status: Current every day smoker tobacco type: cigarettes packs per day: 1 alcohol intake: never substance use type: former substance user, crack/cocaine and heroin current occupational status: employed Travel in the last 8 weeks: None household members: significant other housing: house 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
== END ==
PROVIDERS: PCP Nurse Anesthetist, Certified Registered; Visit Provider Nurse Anesthetist, Certified Registered
DX: M50.10 Cervical disc disorder with radiculopathy, unspecified cervical region (principal); M50.20 Other cervical disc displacement, unspecified cervical region
CPT/HCPCS: 99212; G0463

== ENCOUNTER → 2023-06-11 06:58 | Outpatient (CLI) | payer BC, SELFPAY ==
--- NOTE | 2023-06-11 07:03 | MR_ITS ---
FINAL REPORT CLINICAL HISTORY: NECK PAIN COMPARISON: 11/01/2021 FINDINGS: Multi planar MR imaging was obtained of the cervical spine. There is abnormal decreased signal throughout the cervical discs. There is moderate loss of height of the L4-5 and L5 disc space levels. The vertebrae are of normal height. There is mild reversal of the normal curvature of the cervical spine. The cervical cord demonstrates normal signal and configuration. C2-C3: There is no evidence of significant disc bulge or protrusion. There is no significant facet hypertrophy. C3-C4: There is no evidence of significant disc bulge or protrusion. There is no significant facet hypertrophy. C4-C5: A large annular bulge is present with endplate hypertrophy, and bilateral severe neural foraminal narrowing. C5-C6: There is a moderate annular bulge present, with endplate hypertrophy, severe right and moderate left neuroforaminal narrowing. C6-C7: There is a mild broad-based central disc protrusion, with moderate to severe bilateral neural foraminal narrowing. C7-T1: There is no evidence of significant disc bulge or protrusion. There is no significant facet hypertrophy. IMPRESSION: Multilevel disc disease, as described, with severe bilateral foraminal narrowing at the C4-5 and C6-7 levels bilaterally, and severe right neuroforaminal narrowing at the C5-6 level. Reviewed, Interpreted and Dictated by Kam Beaver MD Transcribed by Miladis Cabezas Authenticated and [facility]
== END ==
LOC: RAD 06:59
PROVIDERS: PCP Nurse Anesthetist, Certified Registered; Visit Provider Nurse Practitioner Family
DX: M54.2 Cervicalgia (principal)
CPT/HCPCS: 72141; 76376